=== PATIENT | male | born 1975 | race Caucasian/White ===

== ENCOUNTER 2025-09-21 05:06 | Emergency (ER) | payer OTHER ==
[2025-09-21 05:49] LABS: INR-International Normal Ratio 1.4; Prothrombin Time 17.5 sec (12.0-14.7)
[2025-09-21 05:50] LABS: PTT 33.3 sec (22.9-36.1)
[2025-09-21 05:53] LABS: ALT (SGPT) 90 U/L (Less than 45); AST (SGOT) 401 U/L (11-34); Albumin 2.6 g/dL (3.1-4.5); Alkaline Phosphatase 236 U/L (40-110); Anion Gap 19 mmol/L (10-20); BUN (Urea Nitrogen) 10 mg/dL (8.4-25.7); Bilirubin, Total 9.6 mg/dL (0.3-1.2); Calc. Creatinine Clearance 0 mL/min (70-130); Calcium 7.7 mg/dL (7.8-10.44); Carbon Dioxide 20 mmol/L (22-29); Chloride 104 mmol/L (98-107); Globulin 4.9 g/dL (2.4-3.5); Glucose 97 mg/dL (70-105); Potassium 3.4 mmol/L (3.5-5.1); Sodium 140 mmol/L (136-145)
[2025-09-21 06:13] LABS: #Basophils 0.2 thou/uL (0.0-0.2); #Eosinophils 0.0 thou/uL (0.0-0.7); #Lymphocytes 1.3 thou/uL (1.20-3.40); #Monocytes 0.4 thou/uL (0.11-0.59); #Neutrophils 5.4 thou/uL (1.40-6.50); %Basophils 2.7 % (0.0-1.0); %Eosinophils 0.5 % (0.0-10.0); %Lymphocytes 18.1 % (21.0-51.0); %Monocytes 5.9 % (0.0-10.0); %Neutrophils 72.9 % (42.0-75.0); Hematocrit 35.1 % (42.0-52.0); Hemoglobin 12.5 g/dL (14.0-18.0); MDiff Complete? YES; Mean Corpuscular Hemoglobin 36.3 pg (27.0-31.0); Mean Corpuscular Volume 102.0 fl (78.0-98.0); Platelet Adequacy Comment Appears Decreased; Platelet Count 100 10x3/uL (130-400); Red Blood Cell (RBC) Count 3.45 mill/uL (4.70-6.10); White Blood Cell (WBC) Count 7.4 10x3/uL (4.8-10.8)
[2025-09-21 06:14] LABS: Bicarbonate (HCO3v) 23.7 mmol/L (22.0-28.0); CO2 Tension (PvCO2) 31.2 mmHg (42.0-51.0); Calcium, Ionized 0.94 mmol/L (1.15-1.33); Chloride 110 mmol/L (98-107); Hemoglobin - Calc 13.7 g/dL (14.0-18.0); Potassium 3.4 mmol/L (3.5-5.1); Sodium 139 mmol/L (138-145); T. Carbon Dioxide 24.7 mmol/L (22.0-28.0); vO2 Saturation-calc 99.7 % (60.0-85.0)
[2025-09-21 07:00] LABS: Troponin I 0.015 ng/mL (< 0.028)
[2025-09-21] MEDS ORDERED: Ketorolac Tromethamine 30 MG (1 mL) VIAL ONE (07:28)
== END 2025-09-21 08:38 | disposition short-term general hospital (02) ==
LOC: BURERS 05:06
DX: K70.11 Alcoholic hepatitis with ascites (principal); F17.210 Nicotine dependence, cigarettes, uncomplicated
CPT/HCPCS: 36415; 71045; 80053; 80307; 82140; 82330; 82803; 83605; 83880; 84484; 85025; 85610; 85730; 94760; 96374; 96375; 96376; J1885; J3360